=== PATIENT | female | born 1940 | race Caucasian/White ===

== ENCOUNTER 2016-07-21 07:07 | Inpatient (IN) | payer OTHER ==
--- NOTE | 2016-07-12 15:25 | CPEKG ---
Heart Rate: 69 RR Interval: 870 P-R Interval: 152 QRSD Interval: 132 QT Interval: 424 QTC Interval: 455 P [place]: 7 QRS [place]: 45 T Wave [place]: -33 EKG Severity - ABNORMAL ECG - EKG Impression: SINUS RHYTHM EKG Impression: RIGHT BUNDLE BRANCH BLOCK EKG Impression: RIGHT BUNDLE BRANCH BLOCK IS NEW Electronically Signed By: Damien Ribera 14-Jul-2016 08:33:52
[2016-07-12 15:46] LABS: % IMMATURE GRANULYOCYTES 0.4 % (0.0-1.1); ABSOLUTE IMMATURE GRANULOCYTES 0.03 10^3/uL (0.00-0.10); ADD DIFF? NO; ADD MORPH? NO; ADD SCAN? NO; ATYPICAL LYMPHOCYTE FLAG 10 (0-99); FRAGMENT RBC FLAG 0 (0-99); HEMATOCRIT 47.1 % (38.0-47.0); HEMOGLOBIN 15.1 g/dL (12.6-16.3); LEFT SHIFT FLG 0 (0-99); LIPEMIA HEMOLYSIS FLAG 80 (0-99); MEAN CELL HEMOGLOBIN 29.6 pg (27.9-34.1); MEAN CELL HEMOGLOBIN CONCENTR. 32.1 g/dL (32.4-36.7); MEAN CELL VOLUME 92.4 fL (81.5-99.8); MEAN PLATELET VOLUME 11.3 fL (8.7-11.7); PLATELET CLUMPS FLAG 0 (0-99); PLATELET COUNT 204 10^3/uL (150-400)
[2016-07-12 17:32] LABS: ANION GAP 13 mEq/L (8-16); CALCIUM 9.9 mg/dL (8.5-10.4); CARBON DIOXIDE 28 mEq/l (22-31); CHLORIDE 102 mEq/L (97-110); CREATININE 1.1 mg/dL (0.6-1.0); GLOMERULAR FILTRATION RATE 49; GLUCOSE 97 mg/dL (70-100); POTASSIUM 3.8 mEq/L (3.5-5.2); SODIUM 143 mEq/L (134-144)
[~2016-07-21 07:07] MED LIST: ACETAMINOPHEN 325 MG TAB PO ONE; CHLORHEXIDINE GLUC HIBICLENS 118 ML BTL TP ONE; DEXAMETHASONE 4 MG/ML VIAL IVP ONE; FAMOTIDINE 20 MG TAB PO ONE; ROPI/epiNEPH/KETOROLAC JOINT COCKTAIL IU ONE; TRANEXAMIC ACID 3,000 MG in NS 50 ML IRR ONE
[2016-07-21] MEDS ORDERED: LIDOCAINE 1% 5 ML SDV ONE (07:27)
[2016-07-21] MEDS ORDERED: LR 1,000 ML IV ONE (07:40)
[2016-07-21] MEDS ORDERED: LIDOCAINE 1% 5 ML SDV ID PRN (07:40)
[2016-07-21] MEDS ORDERED: TRANEXAMIC ACID 3,000 MG/50 ML BAG IRR ONE (07:49)
[2016-07-21] MEDS ORDERED: SKIN ADHESIVE (DERMABOND) 1 EACH TP ONE (07:49)
[2016-07-21] MEDS ORDERED: VANCOMYCIN 1 GM VIAL IV ONE (07:49)
[2016-07-21] MEDS ORDERED: VANCOMYCIN 1.5 GM in D5W 250 ML IV ONE (08:00)
[2016-07-21] MEDS ORDERED: MIDAZOLAM 2 MG/2 ML VIAL ONE (09:08)
[2016-07-21] MEDS ORDERED: PROPOFOL 200 MG/20 ML VIAL ONE ×2 (09:16)
[2016-07-21] MEDS ORDERED: fentaNYL 100 MCG/2 ML INJ ONE (09:16)
[2016-07-21] MEDS ORDERED: ONDANSETRON 4 MG/2 ML VIAL ONE (10:31)
[2016-07-21] MEDS ORDERED: ROPIVACAINE HCL 150 MG/30 ML INJ ONE (10:33)
--- NOTE | 2016-07-21 10:57 | POSTOPPROG ---
Post Op Note Date of Operation: 07/21/16 Surgeon: Donnie Prado Belt Fixer: dorita prado Anesthesiologist: dr. laird Anesthesia: Spinal, Other (Specify) (adductor canal block) Pre-op Diagnosis: right knee OA Post-op Diagnosis: same Indication: right knee pain due to OA that failed conservative measures Procedure: R TKA Findings: severeknee OA Inf/Abcess present in the surg proc area at time of surgery?: No EBL: 50-100
[2016-07-21] MEDS ORDERED: BISACODYL 10 MG SUPP PR PRN (10:58)
[2016-07-21] MEDS ORDERED: PROMETHAZINE HCL 25 MG SUPPR PR PRN (10:58)
[2016-07-21] MEDS ORDERED: TEMAZEPAM 15 MG CAP PO PRN (10:58)
[2016-07-21] MEDS ORDERED: LACTULOSE 20 GM/30 ML UDCUP PO PRN (10:58)
[2016-07-21] MEDS ORDERED: POLYETHYLENE GLYCOL 3350 17 GM PKT PO PRN (10:58)
[2016-07-21] MEDS ORDERED: ONDANSETRON 4 MG/2 ML VIAL IVP PRN (10:58)
[2016-07-21] MEDS ORDERED: MAGNESIUM HYDROXIDE 30 ML UDCUP PO PRN (10:58)
[2016-07-21] MEDS ORDERED: PHARMACY PAIN CONSULT 1 EA MISC PRN (10:58)
[2016-07-21] MEDS ORDERED: ONDANSETRON DISINTEGRATING 4 MG TAB PO PRN (10:58)
[2016-07-21] MEDS ORDERED: PROMETHAZINE HCL 25 MG/ML INJ IVP PRN (10:58)
[2016-07-21] MEDS ORDERED: DIPHENOXYLATE/ATROPINE LOMOTIL 1 TAB PO PRN (10:58)
[2016-07-21] MEDS ORDERED: diphenhydrAMINE 25 MG CAP PO PRN (10:58)
[2016-07-21] MEDS ORDERED: LR 1,000 ML IV SCH (11:00)
[2016-07-21] MEDS: ACETAMINOPHEN 325 MG TAB PO SCH ×3 (12:33→23:59)
[2016-07-21] MEDS: oxyCODONE IR 5 MG TAB PO PRN ×4 (12:36→21:48)
[2016-07-21] MEDS: CYCLOBENZAPRINE 10 MG TAB PO PRN ×2 (14:51→23:59)
--- NOTE | 2016-07-21 15:47 | GOP ---
DATE OF OPERATION: 07/21/2016 SURGEON: Jessica Jaramillo MD RADIOLOGY CT TECHNOLOGIST: Leigh Jaramillo PA-C. ANESTHESIA: Spinal. PREOPERATIVE DIAGNOSIS: Right knee osteoarthritis. POSTOPERATIVE DIAGNOSIS: Right knee osteoarthritis. PROCEDURE PERFORMED: Right total knee arthroplasty. FINDINGS: ESTIMATED BLOOD LOSS: 30 cc. PATHOLOGY: Severe tricompartmental osteoarthritis. INDICATIONS: This is a 75-year-old female with severe and progressive pain and deformity of the right knee, unresponsive to conservative care. Risks and benefits of the surgical intervention were explained in detail. DESCRIPTION OF PROCEDURE: The patient was brought to the operative room and placed on the table in the supine position. Spinal anesthesia was induced without difficulty. A pneumatic tourniquet was applied about the right proximal thigh, and the leg was prepped and draped in a sterile fashion. The leg reaves was applied. After exsanguination by elevation, the tourniquet was inflated to 200 mm of mercury. Incision was made anterior medial from the tibial tuberosity to a point 2 cm proximal to the superior pole of the patella. Medial parapatellar arthrotomy was carried out from the superior pole of the patella and posteriorly in line with the fibers of the Type II VMO. The medial collateral ligament was elevated and the infrapatellar fat pad was resected. The patella was everted and the articular surface was excised. A 32 mm patellar button was placed. The distal femoral guide hole was drilled and the 6- degree alignment kim was placed. A 10 mm distal femoral cut was made without difficulty. Attention was turned to the tibia and a standard 9 mm cut based on the lateral tibial condyle was performed. The tibial articular surface was excised without difficulty. Attention was turned back to the femur and a size 5 Triathlon femoral cutting block was positioned. Anterior, posterior, and chamfer cuts were made, followed by the intercondylar box cut. The knee was extended and the remnants of the medial and lateral meniscus were excised. The posterior capsule was injected with ropivacaine, epinephrine and Toradol. A size 4 MIS mini keel tibial tray was positioned. Trial reduction was then carried out. There was excellent range of motion, alignment, and stability using the 11 mm polyethylene. All trials were then removed. The joint was thoroughly irrigated and carefully dried. Two packages of cement and 2 grams of vancomycin were mixed in the vacuum mixer and placed on the fixation surfaces of all surfaces of the components. The components were implanted and all excess cement was thoroughly removed. The permanent 11 mm polyethylene X3 was placed without difficulty. The tourniquet was deflated and all bleeders were coagulated. The wound was thoroughly irrigated and closed using interrupted sutures of 2-0 Vicryl for the joint capsule. The subcu was closed with 3-0 Vicryl and the skin with 4-0 Monocryl. Dermabond and Steri-Strips were applied followed by a compressive dressing. The patient was then moved from the operating room to the recovery room in good condition, having tolerated the procedure well. /[id number]/MODL MTDD
[2016-07-21] MEDS ORDERED: WARFARIN SODIUM 5 MG TAB PO SCH (16:00)
[2016-07-21] MEDS: VENLAFAXINE HCL 75 MG TAB PO SCH ×2 (17:05→21:38)
[2016-07-21] MEDS ORDERED: VANCOMYCIN HCL/NORMAL SALINE 250 ML IV ONE (20:00)
[2016-07-21] MEDS: SENNOSIDES/DOCUSATE SODIUM TAB PO SCH ×3 (20:10→21:39)
[2016-07-21] MEDS: FAMOTIDINE 20 MG TAB PO SCH (20:13)
[2016-07-21] MEDS ORDERED: EYELID CLEANSER COMBINATION EACHEYE SCH (21:00)
[2016-07-21] MEDS ORDERED: NON-FORMULARY NEW DRUG (Ranitidine Hcl [Zantac] 150 MG) PO SCH (21:00)
[2016-07-22] MEDS: ACETAMINOPHEN 325 MG TAB PO SCH ×2 (05:20→10:50)
[2016-07-22 05:37] LABS: HEMATOCRIT 38.3 % (38.0-47.0); HEMOGLOBIN 12.2 g/dL (12.6-16.3)
[2016-07-22 05:47] LABS: INR 1.12 (0.83-1.16); PROTIME(PATIENT) 14.3 SEC (12.0-15.0)
[2016-07-22 05:58] LABS: ANION GAP 8 mEq/L (8-16); CARBON DIOXIDE 28 mEq/l (22-31); CHLORIDE 105 mEq/L (97-110); GLOMERULAR FILTRATION RATE 54; GLUCOSE 116 mg/dL (70-100); POTASSIUM 3.8 mEq/L (3.5-5.2); SODIUM 141 mEq/L (134-144)
[2016-07-22 07:34] VITALS: TEMP 98
[2016-07-22] MEDS: FAMOTIDINE 20 MG TAB PO SCH (07:43)
[2016-07-22] MEDS: SENNOSIDES/DOCUSATE SODIUM TAB PO SCH (07:43)
[2016-07-22] MEDS: oxyCODONE IR 5 MG TAB PO PRN ×2 (07:43→14:00)
[2016-07-22] MEDS: VENLAFAXINE HCL 75 MG TAB PO SCH (07:44)
[2016-07-22] MEDS ORDERED: LISINOPRIL 5 MG TAB PO SCH (09:00)
[2016-07-22] MEDS ORDERED: ENOXAPARIN 40 MG/0.4 ML SYR SC SCH (09:00)
[2016-07-22] MEDS ORDERED: TRIAMTERENE/HCTZ 37.5/25 1 EACH TAB PO SCH (09:00)
[2016-07-22] MEDS ORDERED: PANTOPRAZOLE SODIUM 40 MG TAB PO SCH (09:00)
[2016-07-22] MEDS ORDERED: NON-FORMULARY NEW DRUG (Loratadine [Loratadine] 10 MG) PO SCH (09:00)
[2016-07-22] MEDS ORDERED: CETIRIZINE 10 MG TAB PO SCH (09:00)
[2016-07-22] MEDS ORDERED: OXYBUTYNIN CHLORIDE 5 MG TAB PO SCH (09:00)
[2016-07-22] MEDS ORDERED: NON-FORMULARY NEW DRUG (Omeprazole [Prilosec 20 Mg] 20 MG) PO SCH (09:00)
[2016-07-22] MEDS ORDERED: TRIAMTERENE/HCTZ 75/50 1 EACH TAB PO SCH (09:00)
--- NOTE | 2016-07-22 09:42 | PDFACE2FAC ---
Face to Face Encounter 1. I certify that this patient is under my care and that I, or a nurse practitioner or physician's office services assistant working with me, had a [id number] encounter that meets the physician lksw-bx-pemb encounter requirements with this patient on 07/22/16. 2. I certify that based on my findings, the following services are medically necessary home health services: [X Nursing] [X Physical Therapy] [ Speech-Language Pathology] 3. 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 Will need biweekly blood draws and PT several times for week.] 4. I certify this patient is homebound* because [the patient's condition restricts their ability to leave their home except with the assistance of another individual or the aid of a supportive device.] patient is homebound as she is s/p R TKA on narcotic pain meds, recommend FWW for 2 weeks. decreased ambulation, increased pain and swelling I certify that this patient is confined to his/her home and needs intermittent jail care, physical and/or speech therapy. This patient is under my care and I have authorized home health services. * Homebound is defined by Medicare as follows: absences from home require considerable and tacking effort and or for medical reasons or orthodox services or are infrequent or of short duration when for other reasons*.
--- NOTE | 2016-07-22 09:45 | PDIAF ---
- Diagnosis Diagnosis: S/p R TKA due to knee OA Code Status: Full Code - Medication Management Discharge Medications: Medications to Continue on Transfer Biotene Mouth [place] 1 spray PO HS 06/08/16 [Last Taken 07/20/16] Eyelid Cleanser Combination #9 [Systane] 1 drop EACHEYE HS 06/08/16 [Last Taken 07/20/16] Glucosamine/Chondroitin [Glucosamine/Chondroitin (*)] 1 each PO BID 06/08/16 [ Last Taken 07/14/16] Herbals/Supplements -Info Only 1 each PO DAILY 06/08/16 [Last Taken 07/14/16] Lisinopril [Zestril 5 mg (*)] 5 mg PO DAILY 06/08/16 [Last Taken 07/19/16] Loratadine 10 mg PO DAILY 06/08/16 [Last Taken 07/21/16 06:30] Omeprazole [Prilosec 20 mg] 20 mg PO DAILY 06/08/16 [Last Taken 07/21/16 06:30] Oxybutynin Chloride 5 mg PO DAILY 06/08/16 [Last Taken 07/21/16 06:30] Ranitidine HCl [Zantac] 150 mg PO HS 06/08/16 [Last Taken 07/20/16] Sodium Fluoride [Prevident 5000] 1 rhonda TP BID 06/08/16 [Last Taken 07/20/16] Triamterene/Hydrochlorothiazid [Triamterene-Hctz 75-50 mg Tab] 0.5 tab PO DAILY 06/08/16 [Last Taken 07/20/16] Vitamin B Complex [B Complex] 1 each PO DAILY 06/08/16 [Last Taken 07/14/16] Multivitamins [Multivitamin (*)] 1 each PO DAILY 06/09/16 [Last Taken 07/14/16] Venlafaxine HCl [Venlafaxine 75MG (*)] 75 mg PO TID 07/21/16 [Last Taken 06:30] Acetaminophen [Tylenol 325mg (*)] 650 mg PO Q6HRS #0 tab 07/22/16 [Last Taken Unknown] Cyclobenzaprine [Flexeril 10 MG (*)] 10 mg PO Q8HRS PRN #0 tab 07/22/16 [Last Taken Unknown] Enoxaparin [Lovenox 40 MG (*)] 40 mg SC DAILY #0 syr 07/22/16 [Last Taken Unknown] Sennosides/Docusate Sodium [Senokot-S] 1 - 2 tab PO BID #0 tab 07/22/16 [Last Taken Unknown] Warfarin Sodium [Coumadin 5MG (*)] 5 mg PO DAILY AT 4PM #0 tab 07/22/16 [Last Taken Unknown] celeCOXIB [Celebrex (*)] 200 mg PO DAILY #0 cap 07/22/16 [Last Taken Unknown] oxyCODONE IR [Oxycodone Ir (*)] 5 - 10 mg PO Q3HRS PRN #0 tab 07/22/16 [Last Taken Unknown] Discharge Medications: Refer to the Discharge Home Medication list for PRN reason. - Orders Services needed: Home Care, Registered Nurse, Physical Therapy Home Care Face to Face: I certify that this patient was under my care and that I had the required [id number] encounter meeting the encounter requirements on the discharge day. My findings support the fact that the patient is homebound as defined in CMS Chapter 7 Medicare Benefits Manual 30.1.1, The condition of the patient is such that there exists a normal inability to leave home and consequently, leaving home would require a considerable and taxing effort. Diet Recommendation: no restrictions on diet Diet Texture: Regular Texture Diet Wound Care Instructions: see instructions below Activity/Weight Bearing Restrictions: WBAT with FWW Additional: Joint Protocol-Knee Replacement. After surgery instructions: Coumadin 5mg by mouth once daily for 3 weeks (helps prevent blood clots). Lovenox subcutaneous injection, one injection once daily for 4 days. PT/INR every Tuesday and morning while taking Coumadin, starting the first Tuesday after discharge from the hospital. Wear thigh high FLORIN hose on both legs during the daytime for 2 weeks (helps to prevent blood clots and decrease swelling in the surgical leg). It is ok to remove FLORIN hose at night time to give your legs a break. It is common for swelling and bruising to occur in the entire surgical leg even extending to the foot, if concerned call Dr. Antoine office [phone]. Elevate the surgical leg with the ankle above the hip several times a day. Ideally anytime you are resting throughout the day. Attempt to keep the knee straight while elevating by placing pillows under the ankle instead of the knee to elevate. This may be painful, so please do as much as tolerated. This will help you achieve full knee extension. Use a walker for 7-14 days. Wear an ronald wrap on the knee for 3-4 days after surgery, then it is no longer needed. Do exercises in the book 2-3 times a day. Ice at least 3-5 times a day for 30 minutes each time, if not more often. We also recommend using the ice machine before falling asleep to help with pain. If you have further questions that are not addressed here, please look at the information packet handed to you at the preop appointment. Most will be answered on the FAQs, after surgery instructions and incision care pages. You may also call Dr. Ospina office with questions as well. *IF YOU HAVE A LIFE THREATENING EMERGENCY, CALL 911. FOR NON-LIFE THREATENING ISSUES, PLEASE CALL DR. OSPINA OFFICE FIRST. A PHYSICIAN IS STAFF SONOGRAPHER 20/12. Incision/ Dressing Care: May shower tomorrow, please cover incision dressing (salinas one) with saran wrap or [id number] before showering as the incision dressing is water resistant, but not waterproof. Keep the incision (salinas) dressing clean and dry. If the incision dressing gets soiled or wet underneath, change dressing to the dressing given to you by the hospital. (salinas dressing will turn black if drainage occurs). Remove incision dressing (salinas one) two weeks after surgery. Leave steri strips alone. They will fall off on their own. Do not have anyone else remove the incision dressing prior to the stated recommendation (2 weeks after surgery). If there are incision concerns, contact Dr. Antoine office. (Leigh or Dr. Jaramillo may remove earlier if concerns arise). If incision site (salinas dressing) has drainage, call Dr. Antoine office, . Leigh and Dr. Jaramillo may ask you to come into the office for further evaluation - Labs/Radiology PT/INR Date: 07/26/16 (every Tuesday and MORNING for 3 weeks postop R TKA. call [place] with results [phone]) Call or Fax Lab and Imaging Results to: [place] [facility] [place] at [phone] - Follow Up Care Current Providers and Referrals: Donnie Jaramillo MD [Medical Doctor] - 08/12/16 2:00 pm Juliane Duncan MD [Primary Care Provider] -
[2016-07-22] MEDS: CYCLOBENZAPRINE 10 MG TAB PO PRN (10:50)
[2016-07-22 11:38] VITALS: BP 124/72
--- NOTE | 2016-07-22 13:42 | PDIAF ---
- Diagnosis Diagnosis: S/p R TKA due to knee OA Code Status: Full Code - Medication Management Discharge Medications: Medications to Continue on Transfer Biotene Mouth [place] 1 spray PO HS 06/08/16 [Last Taken 07/20/16] Eyelid Cleanser Combination #9 [Systane] 1 drop EACHEYE HS 06/08/16 [Last Taken 07/20/16] Glucosamine/Chondroitin [Glucosamine/Chondroitin (*)] 1 each PO BID 06/08/16 [ Last Taken 07/14/16] Herbals/Supplements -Info Only 1 each PO DAILY 06/08/16 [Last Taken 07/14/16] Lisinopril [Zestril 5 mg (*)] 5 mg PO DAILY 06/08/16 [Last Taken 07/19/16] Loratadine 10 mg PO DAILY 06/08/16 [Last Taken 07/21/16 06:30] Omeprazole [Prilosec 20 mg] 20 mg PO DAILY 06/08/16 [Last Taken 07/21/16 06:30] Oxybutynin Chloride 5 mg PO DAILY 06/08/16 [Last Taken 07/21/16 06:30] Ranitidine HCl [Zantac] 150 mg PO HS 06/08/16 [Last Taken 07/20/16] Sodium Fluoride [Prevident 5000] 1 rhonda TP BID 06/08/16 [Last Taken 07/20/16] Triamterene/Hydrochlorothiazid [Triamterene-Hctz 75-50 mg Tab] 0.5 tab PO DAILY 06/08/16 [Last Taken 07/20/16] Vitamin B Complex [B Complex] 1 each PO DAILY 06/08/16 [Last Taken 07/14/16] Multivitamins [Multivitamin (*)] 1 each PO DAILY 06/09/16 [Last Taken 07/14/16] Venlafaxine HCl [Venlafaxine 75MG (*)] 75 mg PO TID 07/21/16 [Last Taken 06:30] Acetaminophen [Tylenol 325mg (*)] 650 mg PO Q6HRS #0 tab 07/22/16 [Last Taken Unknown] Cyclobenzaprine [Flexeril 10 MG (*)] 10 mg PO Q8HRS PRN #0 tab 07/22/16 [Last Taken Unknown] Enoxaparin [Lovenox 40 MG (*)] 40 mg SC DAILY #0 syr 07/22/16 [Last Taken Unknown] Sennosides/Docusate Sodium [Senokot-S] 1 - 2 tab PO BID #0 tab 07/22/16 [Last Taken Unknown] Warfarin Sodium [Coumadin 5MG (*)] 5 mg PO DAILY AT 4PM #0 tab 07/22/16 [Last Taken Unknown] celeCOXIB [Celebrex (*)] 200 mg PO DAILY #0 cap 07/22/16 [Last Taken Unknown] oxyCODONE IR [Oxycodone Ir (*)] 5 - 10 mg PO Q3HRS PRN #0 tab 07/22/16 [Last Taken Unknown] Discharge Medications: Refer to the Discharge Home Medication list for PRN reason. - Orders Services needed: Home Care, Registered Nurse, Physical Therapy Home Care Face to Face: I certify that this patient was under my care and that I had the required [id number] encounter meeting the encounter requirements on the discharge day. My findings support the fact that the patient is homebound as defined in CMS Chapter 7 Medicare Benefits Manual 30.1.1, The condition of the patient is such that there exists a normal inability to leave home and consequently, leaving home would require a considerable and taxing effort. Oxygen: new home oxygen continuous until follow up with PCP Diet Recommendation: no restrictions on diet Diet Texture: Regular Texture Diet Wound Care Instructions: see instructions below Activity/Weight Bearing Restrictions: WBAT with FWW Additional: Joint Protocol-Knee Replacement. After surgery instructions: Coumadin 5mg by mouth once daily for 3 weeks (helps prevent blood clots). Lovenox subcutaneous injection, one injection once daily for 4 days. PT/INR every Tuesday and morning while taking Coumadin, starting the first Tuesday after discharge from the hospital. Wear thigh high FLORIN hose on both legs during the daytime for 2 weeks (helps to prevent blood clots and decrease swelling in the surgical leg). It is ok to remove FLORIN hose at night time to give your legs a break. It is common for swelling and bruising to occur in the entire surgical leg even extending to the foot, if concerned call Dr. Antoine office [phone]. Elevate the surgical leg with the ankle above the hip several times a day. Ideally anytime you are resting throughout the day. Attempt to keep the knee straight while elevating by placing pillows under the ankle instead of the knee to elevate. This may be painful, so please do as much as tolerated. This will help you achieve full knee extension. Use a walker for 7-14 days. Wear an ronald wrap on the knee for 3-4 days after surgery, then it is no longer needed. Do exercises in the book 2-3 times a day. Ice at least 3-5 times a day for 30 minutes each time, if not more often. We also recommend using the ice machine before falling asleep to help with pain. If you have further questions that are not addressed here, please look at the information packet handed to you at the preop appointment. Most will be answered on the FAQs, after surgery instructions and incision care pages. You may also call Dr. Ospina office with questions as well. *IF YOU HAVE A LIFE THREATENING EMERGENCY, CALL 911. FOR NON-LIFE THREATENING ISSUES, PLEASE CALL DR. OSPINA OFFICE FIRST. A PHYSICIAN IS PIERCER OPERATOR 20/12. Incision/ Dressing Care: May shower tomorrow, please cover incision dressing (salinas one) with saran wrap or [id number] before showering as the incision dressing is water resistant, but not waterproof. Keep the incision (salinas) dressing clean and dry. If the incision dressing gets soiled or wet underneath, change dressing to the dressing given to you by the hospital. (salinas dressing will turn black if drainage occurs). Remove incision dressing (salinas one) two weeks after surgery. Leave steri strips alone. They will fall off on their own. Do not have anyone else remove the incision dressing prior to the stated recommendation (2 weeks after surgery). If there are incision concerns, contact Dr. Antoine office. (Leigh or Dr. Jaramillo may remove earlier if concerns arise). If incision site (salinas dressing) has drainage, call Dr. Antoine office, . Leigh and Dr. Jaramillo may ask you to come into the office for further evaluation - Labs/Radiology PT/INR Date: 07/26/16 (every Tuesday and MORNING for 3 weeks postop R TKA. call [place] with results [phone]) Call or Fax Lab and Imaging Results to: [place] [facility] at [phone] - Follow Up Care Current Providers and Referrals: Donnie Jaramillo MD [Medical Doctor] - 08/12/16 2:00 pm Juliane Duncan MD [Primary Care Provider] -
[2016-07-22 15:22] VITALS: PULSE 79; RESP 16; O2SAT 69
== END 2016-07-22 16:20 | disposition home health service (06) | DRG 470 ==
LOC: F3N 07:07
PROVIDERS: ADMIT Orthopaedic Surgery; ATTEND Orthopaedic Surgery
PROC: 0SRC0J9 Replacement of Right Knee Joint with Synthetic Substitute, Cemented, Open Approach (ICD-10-PCS; principal; 2016-07-21 09:15)
DX: M17.11 Unilateral primary osteoarthritis, right knee (principal); I10 Essential (primary) hypertension; N18.9 Chronic kidney disease, unspecified; E66.9 Obesity, unspecified; Z86.718 Personal history of other venous thrombosis and embolism
CPT/HCPCS: 97110-GP; 97116-GP; 97161-GP; 97165-GO; C1713; G8978-GP-CJ; G8979-GP-CI; G8987-GO-CI; G8988-GO-CI; G8989-GO-CI; J0171; J1100; J1650; J1885; J2250; J2405; J2704; J2795; J3010; J3370

== ENCOUNTER → 2016-12-13 | Outpatient (CLI) | payer OTHER | LOC: FIMAGING 14:05 | PROVIDERS: ATTEND Internal Medicine | DX: Z12.31 Encounter for screening mammogram for malignant neoplasm of breast (principal); Z80.3 Family history of malignant neoplasm of breast | CPT/HCPCS: G0202 ==

== ENCOUNTER → 2016-12-16 | Outpatient (CLI) | payer OTHER | LOC: FIMAGING 13:38 | PROVIDERS: ATTEND Internal Medicine | DX: R42 Dizziness and giddiness (principal); R51 Headache; I67.2 Cerebral atherosclerosis; Z86.79 Personal history of other diseases of the circulatory system; Z98.2 Presence of cerebrospinal fluid drainage device ==

== ENCOUNTER → 2017-06-13 | Outpatient (CLI) | payer OTHER ==
[~2017-06-13] MED LIST changes: -ACETAMINOPHEN 325 MG TAB PO ONE; -CHLORHEXIDINE GLUC HIBICLENS 118 ML BTL TP ONE; -DEXAMETHASONE 4 MG/ML VIAL IVP ONE; -FAMOTIDINE 20 MG TAB PO ONE; +IOPAMIDOL (ISOVUE 370) 100 ML BTL IV ONE; +LIDOCAINE 1% 300 MG/30 ML SDV ONE; -ROPI/epiNEPH/KETOROLAC JOINT COCKTAIL IU ONE; -TRANEXAMIC ACID 3,000 MG in NS 50 ML IRR ONE
== END ==
LOC: FIMAGING 10:17
PROVIDERS: ATTEND Orthopaedic Surgery Hand Surgery
PROC: 3E0U3KZ Introduction of Other Diagnostic Substance into Joints, Percutaneous Approach (ICD-10-PCS; principal; 2017-06-13)
DX: M75.112 Incomplete rotator cuff tear or rupture of left shoulder, not specified as traumatic (principal); M24.112 Other articular cartilage disorders, left shoulder
CPT/HCPCS: 23350; 73201; 77002; Q9967

== ENCOUNTER → 2018-03-02 | Outpatient (CLI) | payer OTHER | LOC: FIMAGING 08:05 | PROVIDERS: ATTEND Internal Medicine Gastroenterology | DX: K59.9 Functional intestinal disorder, unspecified (principal) ==

== ENCOUNTER → 2018-11-23 | Outpatient (CLI) | payer OTHER | LOC: FIMAGING 12:25 ==